=== PATIENT | female | born 1995 | race African-American/Black ===

== ENCOUNTER → 2023-10-30 | Outpatient (CLI) | payer OTHER | LOC: M RAD 11:21 | PROVIDERS: ATTEND Physician Assistant Medical | DX: R68.84 Jaw pain (principal) ==

== ENCOUNTER → 2023-12-06 | Outpatient (REF) | payer OTHER | LOC: M LAB REF 16:09 | PROVIDERS: ATTEND Physician Assistant | DX: J02.9 Acute pharyngitis, unspecified (principal) ==